=== PATIENT | male | born 1990 | race African-American/Black ===

== ENCOUNTER 2017-07-16 11:51 | Emergency (ER) | payer SELFPAY ==
--- NOTE | 2017-07-16 13:07 | RAD ---
RADIOGRAPH RIGHT HAND 3 VIEWS: HISTORY: A 27-year-old male with right hand pain, erythema, and swelling. FINDINGS: There is an old healed fracture deformity of the proximal aspect of the 5th metacarpal. No acute fra cture, periosteal elevation, or permeative lesion is identified. No evidence of subcutaneous emphyse ma or soft tissue calcifications. No acute fracture or dislocation. IMPRESSION: 1. Old healed fracture deformity of the proximal half of the right 5th metacarpal. 2. No other osseous abnormality identified. POS: OFF
== END 2017-07-16 14:53 | disposition home or self-care (01) ==
LOC: ERS 11:51
DX: S66.221A Laceration of extensor muscle, fascia and tendon of right thumb at wrist and hand level, initial encounter (principal); X99.1XXA Assault by knife, initial encounter; Y92.009 Unspecified place in unspecified non-institutional (private) residence as the place of occurrence of the external cause
CPT/HCPCS: 12002

== ENCOUNTER 2018-02-20 09:21 | Emergency (ER) | payer SELFPAY ==
--- NOTE | 2018-02-26 05:21 | PQF ---
[facility] POST DISCHARGE CLINICAL DOCUMENTATION IMPROVEMENT CLARIFICATION FORM l Todays Date: 02/25/18 l Patients Name Anthony Babin l l Admit Date 02/20/18 l Disch Date 02/20/18 Shoe Worker Name Genevieve Anne Email: [email or web address] To be completed by Shoe Worker: Present Clinical Indicators - Signs / Symptoms Results and Location in Medical Record [ ] Documentation of: [ ] [ ] Documentation of: [ ] [ ] Documentation of: [ ] [ ] Documentation of: [ ] [ ] Risks [ ] [ ] [ ] Treatment [ ] Bronchitis QUERY FOR SPECIFICITY OF BRONCHITIS WHETHER IT IS ACUTE OR CHRONIC . [ ] [ ] To be completed by Physician: DO Bond George The documentation in this patients record requires clarification to ensure coding compliance and accuracy. Check the appropriate box and include in your discharge summary. [ ] [ ] [ ] [ ] Please check this box if this does not apply to this patient [ ] Unable to determine [ ] Other diagnosis: Review the following information and exercise your independent professional judgment in responding to the clarification. Based upon the clinical findings, risk factors, and treatment, please clarify if you are treating one of the above probable or suspected diagnoses. Physician Signature: Date Time BRENTD
== END 2018-02-20 10:00 | disposition home or self-care (01) ==
LOC: ERS 09:21
DX: J40 Bronchitis, not specified as acute or chronic (principal)
CPT/HCPCS: 99283

== ENCOUNTER 2018-03-28 03:52 | Emergency (ER) | payer BC, SELFPAY | END 2018-03-28 05:30 | disposition home or self-care (01) | LOC: ERS 03:52 | DX: J30.9 Allergic rhinitis, unspecified (principal); B34.9 Viral infection, unspecified | CPT/HCPCS: 99283 ==

== ENCOUNTER 2019-02-13 18:34 | Emergency (ER) | payer BC, SELFPAY ==
[2019-02-13 19:02] LABS: Bilirubin Negative (Negative); Blood, Urine 3+ (Negative); Clarity Turbid (Clear); Glucose, Urine (Dipstick) Normal (Negative); Leukocyte 25 Leu/uL (Negative); Nitrite Negative (Negative); Protein, Urine (Dipstick) 30 mg/dL (Neg-Trace); RBC/HPF Greater than 50 HPF (0-3); Squamous Epithelial 0-3 HPF (0-3); Urobilinogen Normal mg/dL (Less than 2)
[2019-02-13 19:09] LABS: Bacteria/HPF 1+ HPF (None Seen)
[2019-02-13 19:18] LABS: #Eosinphils 0.1 thou/uL (0.0-0.7); #Lymphocytes 1.3 thou/uL (1.20-3.40); #Monocytes 0.6 thou/uL (0.11-0.59); #Neutrophils 11.5 thou/uL (1.40-6.50); %Basophils 0.1 % (0.0-1.0); %Eosinophils 0.8 % (0.0-10.0); %Lymphocytes 9.8 % (21.0-51.0); %Monocytes 4.1 % (0.0-10.0); %Neutrophils 85.2 % (42.0-75.0); Hemoglobin 14.2 g/dL (14.0-18.0); Mean Corpuscular Hemoglobin 28.5 pg (27.0-31.0); Mean Platelet Volume 9.7 fL (7.4-10.4); Platelet Count 165 thou/uL (130-400); RBC Distribution Width 12.9 % (11.5-14.5); Red Blood Cell (RBC) Count 4.96 mill/uL (4.70-6.10); White Blood Cell (WBC) Count 13.5 thou/uL (4.8-10.8)
[2019-02-13] MEDS ORDERED: Lidocaine Viscous Sol 2% 15 ml UD Cup ONE (19:34)
[2019-02-13] MEDS ORDERED: Mag-Al 1200 mg/1200 mg/30 ML UDCUP ONE (19:34)
[2019-02-13 19:45] LABS: ALT (SGPT) 21 U/L (8-55); AST (SGOT) 23 U/L (5-34); Albumin 4.4 g/dL (3.5-5.0); Alkaline Phosphatase 91 U/L (40-110); Anion Gap 17 mmol/L (10-20); BUN (Urea Nitrogen) 10 mg/dL (8.9-20.6); Bilirubin, Total 0.4 mg/dL (0.2-1.2); Calc. Creatinine Clearance 0 mL/min (70-130); Calcium 10.1 mg/dL (7.8-10.44); Carbon Dioxide 19 mmol/L (22-29); Chloride 109 mmol/L (98-107); Estimated GFR-MDRD Greater than 90; Globulin 4.2 g/dL (2.4-3.5); Glucose 94 mg/dL (70-105); Lipase 21 U/L (8-78); Potassium 4.3 mmol/L (3.5-5.1); Protein, Total 8.6 g/dL (6.0-8.3); Sodium 141 mmol/L (136-145)
[2019-02-13] MEDS ORDERED: cefTRIAXone\\ROCEPHIN 250 MG VIAL ONE (20:17)
[2019-02-13] MEDS ORDERED: Lidocaine 1% PF 5 ML VIAL ONE (20:17)
[2019-02-17 00:50] LABS: Chlam.trachomatis by PCR,Urine Not Detected (NotDetected)
== END 2019-02-13 20:43 | disposition home or self-care (01) ==
LOC: ERS 18:34
DX: N34.2 Other urethritis (principal)
CPT/HCPCS: 36415; 80053; 81003; 81015; 83690; 85025; 87086; 87491; 87591; 96372; 99284; J0696; J2001

== ENCOUNTER 2019-02-15 11:07 | Emergency (ER) | payer BC, SELFPAY ==
[2019-02-15 13:29] LABS: ALT (SGPT) 19 U/L (8-55); AST (SGOT) 21 U/L (5-34); Albumin 5.1 g/dL (3.5-5.0); Alkaline Phosphatase 102 U/L (40-110); Anion Gap 15 mmol/L (10-20); BUN (Urea Nitrogen) 11 mg/dL (8.9-20.6); Bilirubin, Total 0.6 mg/dL (0.2-1.2); Calc. Creatinine Clearance 0 mL/min (70-130); Calcium 10.4 mg/dL (7.8-10.44); Carbon Dioxide 25 mmol/L (22-29); Chloride 104 mmol/L (98-107); Estimated GFR-MDRD 87; Globulin 4.5 g/dL (2.4-3.5); Glucose 83 mg/dL (70-105); Lipase 29 U/L (8-78); Potassium 4.5 mmol/L (3.5-5.1); Protein, Total 9.6 g/dL (6.0-8.3); Sodium 139 mmol/L (136-145)
[2019-02-15 13:31] LABS: Band 5 % (5-11); Hemoglobin 15.3 g/dL (14.0-18.0); Lymphocytes 11 % (21-51); MDiff Complete? YES; Mean Corpuscular Hemoglobin 27.4 pg (27.0-31.0); Mean Corpuscular Volume 85.6 fL (78.0-98.0); Monocytes 1 % (0-10); Neutrophil 83 % (42-75); Platelet Count 195 thou/uL (130-400); Platelet Morphology Comment Appears Adequate; RBC Distribution Width 13.1 % (11.5-14.5); Red Blood Cell (RBC) Count 5.59 mill/uL (4.70-6.10); White Blood Cell (WBC) Count 13.9 thou/uL (4.8-10.8)
--- NOTE | 2019-02-15 14:50 | CT ---
EXAM: Abdomen and pelvic CT scan with contrast: HISTORY: Pain COMPARISON: None FINDINGS: The visualized lung bases are clear. Liver: Unremarkable. Gallbladder: Unremarkable. Pancreas: Unremarkable Spleen: Unremarkable. Adrenal glands: Unremarkable. Kidneys: 3-4 mm distal right ureteral calculus with mild right hydroureteronephrosis. Small hypodensi ty, laterally within the superior aspect of the right kidney is present, too small to definitively characterize. Bowel: Incompletely assessed by absence of enteric contrast administration. Urinary Bladder: The urinary bladder is unremarkable. Adenopathy: No adenopathy within the abdomen or pelvis. Free Air: No free air. Ascites: Minimal free fluid in the right hemipelvis. Osseous structures: No acute osseous abnormalities. IMPRESSION: Mildly obstructing 3 to 4 mm distal right ureteral calculus.
== END 2019-02-15 15:05 | disposition home or self-care (01) ==
LOC: ERS 11:07
DX: N13.2 Hydronephrosis with renal and ureteral calculous obstruction (principal)
CPT/HCPCS: 74177; 80053; 83690; 85025

== ENCOUNTER 2022-10-22 19:31 | Emergency (ER) | payer BC, SELFPAY | END 2022-10-23 00:12 | disposition left against medical advice (07) | LOC: ERS 19:31 | DX: Z53.21 Procedure and treatment not carried out due to patient leaving prior to being seen by health care provider (principal) ==

== ENCOUNTER 2023-08-22 15:08 | Emergency (ER) | payer SELFPAY ==
[2023-08-22 16:02] LABS: Bacteria/HPF None Seen HPF (None Seen); Bilirubin Negative (Negative); Blood, Urine 3+ (Negative); CAUTI Indications for Culture Acute Hematuria; Clarity Extra Turbid (Clear); Glucose, Urine (Dipstick) Normal (Negative); Ketone, Urine Negative (Negative); Leukocyte 25 Leu/uL (Negative); Nitrite Negative (Negative); Protein, Urine (Dipstick) 30 mg/dL (Neg-Trace); RBC/HPF Greater than 50 HPF (0-3); Specific Gravity, Urine 1.017 (1.002-1.036); Squamous Epithelial None Seen HPF (0-3); Urobilinogen Normal mg/dL (Less than 2); pH, Urine 6.5 (5.0-9.0)
[2023-08-22 16:12] LABS: Urine Culture Reflex No No
== END 2023-08-22 19:07 ==
LOC: ERS 15:08
DX: Z53.21 Procedure and treatment not carried out due to patient leaving prior to being seen by health care provider (principal)
CPT/HCPCS: 81001